=== PATIENT | female | born 1960 | race Caucasian/White ===

== ENCOUNTER 2019-12-19 13:09 | Outpatient (CLI) | payer BC, SELFPAY ==
--- NOTE | 2019-12-19 13:15 | MM_ITS ---
WS: [id number] BILATERAL DIGITAL SCREENING MAMMOGRAPHY WITH CAD CLINICAL INFORMATION: SCREENING HISTORY: Screening mammogram. No current complaints. COMPARISON: TECHNIQUE: Bilateral CC and MLO views. FINDINGS: The breasts are composed of heterogeneous fibroglandular density tissue, which can limit the detectio n of small underlying mass lesions. No suspicious mass, asymmetry, calcifications, or architectural d istortion. No evidence of malignancy. Punctate calcification left breast. Vascular calcifications. MM/[place] [id number] IMPRESSION: BI-RADS: 2-Benign FOLLOW UP: 1 Year Follow-up Recommend return to annual screening mammography.
== END 2019-12-19 13:10 | disposition home or self-care (01) ==
LOC: RADSHAW 13:13
PROVIDERS: PCP Nurse Practitioner Family; Visit Provider Nurse Practitioner Women's Health
DX: Z12.31 Encounter for screening mammogram for malignant neoplasm of breast (principal)
CPT/HCPCS: 77067

== ENCOUNTER 2020-01-31 13:48 | Emergency (ER) | payer BC, SELFPAY ==
[2020-01-31 14:00] VITALS: BP 106/72; PULSE 85; RESP 16; TEMP 36.5; O2SAT 96; BMI 26.4
--- NOTE | 2020-01-31 15:43 | XRR_ITS ---
PROCEDURE INFORMATION: Exam: XR Chest, 1 View Exam date and time: 01/31/2020 4:06 PM Age: 59 years old Clinical indication: Dyspnea; Patient HX: Abnormal ekg today; Additional info: Palpitations/dyspnea TECHNIQUE: Imaging protocol: XR of the chest Views: 1 view. COMPARISON: CT chest con [id number] 01/24/2016 3:26 PM FINDINGS: Lungs: Unremarkable. No consolidation. Pleural space: Unremarkable. No pleural effusion. No pneumothorax. Heart/Mediastinum: Unremarkable. No cardiomegaly. Bones/joints: No acute abnormality. XR/XR chest 1V portable [id number] IMPRESSION: No acute findings.
--- NOTE | 2020-01-31 15:43 | ECG_ITS ---
[facility] Test Date: 2020-01-31 Pat Name: Lorenza Armando Department: Room: Gender: Female Senior Property Manager: : 1960 Requested By: Rehan Felton Order Number: [id number] Kelly MD: Salina Cruz M.D. Measurements Intervals [place] Rate: 84 P: 59 CO: 156 QRS: 40 QRSD: 93 T: 65 QT: 362 QTc: 428 Interpretive Statements SINUS RHYTHM No previous ECG available for comparison Electronically Signed On 01-31-2020 17:00:16 CDT by Salina Cruz M.D. [email or web address].[employer] [place]/store/NU/[id number] f
--- NOTE | 2020-01-31 16:57 | ED_ITS ---
HPI - Arrhythmia/Palpitations General: Chief Complaint: Arrhythmia/Palpitations Stated Complaint: was having chest pain/ painter sent b/c ekg Time Seen by Provider: 01/31/20 16:48 Source: patient Mode of arrival: ambulatory Limitations: no limitations History of Present Illness: HPI narrative: Lorenza is a nice 59-year-old female who comes in complaining of heartburn, generalized weakness and nausea. Symptoms been present for most of the day. She was seen at [facility] they were concerned about irregular heartbeat, specifically atrial fibrillation they sent the patient here for evaluation. Patient states she feels fine now and feels silly for being here. She denies any vomiting, syncope or near syncope. Patient states ultimately at this time she feels fine. Patient denies have anything similar to this in the past. She is denying any other complaints or concerns. Associated symptoms: Deny diaphoresis, nausea, pre-syncope, syncope or vomiting Review of Systems Const: Denies: fever(s), chills, body aches, fatigue, malaise or diaphoresis Eyes: Denies: change in vision, blurry vision, photophobia, eye discomfort, eye discharge or eye redness ENMT: Denies: throat pain, odynophagia, hoarseness, swelling of lips/tongue, ear or mastoid pain, ear discharge, change in hearing or nasal discharge Card: Reports: chest pain; Denies: palpitations, irregular heart rhythm, edema, lightheadedness, syncope, pre-syncope, dyspnea on exertion or orthopnea Resp: Reports: dyspnea; Denies: productive cough, non-productive cough, wheezing, hemoptysis or chest congestion GI: Denies: abdominal pain, nausea, vomiting, hematemesis, coffee ground emesis, heartburn, diarrhea, constipation, GI cramping, hematochezia or melena : Denies: flank pain, dysuria, urinary frequency, urinary urgency or hematuria Musc: Denies: neck pain, back pain, extremity pain, extremity swelling, joint pain, joint swelling, joint redness, joint warmth or joint stiffness Skin/Breast: Denies: rash, pruritus, erythema or skin tenderness Neuro: Denies: headache(s), numbness in extremities, weakness in extremities, sensory changes, lack of coordination, difficulty walking, dizziness, vertigo, confusion, Slurred speech present or seizure-like activity Arsenio/Lymph: Denies: easy bruising, easy bleeding, petechiae, purpura or enlarged lymph nodes All/Imm: Denies: urticaria, throat swelling, tongue swelling, facial swelling or acute wheezing PFSH ED PFSH: Medical History Anxiety with depression GERD (gastroesophageal reflux disease) Hypercholesteremia Hypertension Hypothyroidism 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 Currently treating with steroid cream as needed for irritation. Post-menopausal Patient started on estradiol after surgery in 2009. 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 The dysplasia extends to multiple edges of the excised lesion. No JAYLA 2 or 3 or invasive cancer identified. Surgical History H/O abdominoplasty (~2003) Completed at the time of her ablation H/O bladder repair surgery (05/14/10) At the time of her hysterectomy H/O hernia repair (~1971) left groin H/O hysterectomy with oophorectomy (~05/14/10) TVH, BSO, anterior repair, SSIS, cystoscopy, excision of perineal skin lesion performed by Fermin Oscar H/O toe surgery (~09/2006) History of appendectomy (~1971) History of section (~02/01/88) Due to twin Status post hysteroscopic ablation of endometrium (~2003) Social History Smoking and tobacco status: never smoked Alcohol intake: never Physical Exam Const: COMMON NORMALS: no acute distress, patient oriented x3, no limitations, healthy appearing and well nourished GENERAL APPEARANCE: cooperative, well kempt and well developed HENMT: COMMON NORMALS: normocephalic, atraumatic, external ears normal, EAC's normal and Normal external nose present HEAD & SCALP: normal to inspection, normocephalic and atraumatic FACE & SINUS: normal facial exam and face sym metric NOSE: Normal external nose present and Normal nares present EXTERNAL EAR: Yes external ears normal EXTERNAL AUDITORY CANAL: EAC's normal MOUTH: Normal oral and palatal mucosa present, lip normal and tongue normal Eye: COMMON NORMALS: Equal, round and reactive pupils present and conjunctivae normal GENERAL EYE: appearance normal, both eyes and all related structures ALIGNMENT: Yes alignment normal PERIORBITAL: periorbital findings normal EYELID: eyelids normal CONJUNCTIVA: Yes conjunctivae normal SCLERA: sclerae normal PUPIL: Yes Equal, round and reactive pupils present Neck/C-Spine: COMMON NORMALS: full ROM, no lymphadenopathy, supple, no meningeal signs and no JVD GENERAL: Yes normal visual inspection and Yes trachea midline Chest: COMMONS NORMALS: normal inspection of the chest and normal palpation of entire chest wall Resp: COMMON NORMALS: normal respiratory effort, No retractions, No use of a ccessory muscles and clear to auscultation bilaterally EFFORT & INSPECTION: Yes able to speak in complete sentences and Yes symmetric chest movement AUSCULTATION: clear to auscultation bilaterally, no crackles, no rales, no rhonchi and no wheezes Cardio: COMMON NORMALS: no JVD, regular rate, regular rhythm, S1 normal heart sound present and S2 normal heart sound present RATE: regular rate RHYTHM: regular rhythm HEART SOUNDS: S1 normal heart sound present, S2 normal heart sound present, no click, no gallops, no murmurs, no rubs and abnormal split S2 GI: COMMON NORMALS: Soft to palpation and No hepatosplenomegaly present PALPATION: Yes Soft to palpation, No Tenderness to palpation present (GI), No Guarding due to palpation present (GI), No Rigid due to palpation, Yes No hepatosplenomegaly present, No Hernia present, No Palpable mass present and No Pulsatile mass present : COMMON NORMALS: Yes no CVA tenderness BLADDER/KIDNEY EXAM: Yes no CVA tenderness EXTERNAL FEMALE EXAM: No Hernia present Back/Pelvis: COMMON NORMALS: no CVA tenderness, thoracic and lumbar spine normal to inspection, no thoracic nor lumbar tenderness and thoraco-lumbar ROM normal Extremity: COMMON NORMALS: normal to inspection, full ROM, capillary refill normal, no joint enlargement, no clubbing, cyanosis or edema and no calf tenderness Neuro: COMMON NORMALS: patient oriented x3, CN's II-XII intact bilaterally, moves all extremities, no focal motor deficits and no sensory deficits noted MENINGEAL SIGNS: Yes no meningeal signs SPEECH: speech normal Psych: COMMON NORMALS: mental status grossly normal, Normal thought process present, cooperative, normal affect, speech normal and activity/motor behavior normal APPEARANCE: Yes well kempt SPEECH: Yes normal speech THOUGHT PROCESS: Normal thought process present Skin: COMMON NORMALS: no rashes or lesions noted, turgor normal, no jaundice, no petechiae and no mottling GENERAL SKIN EXAM: no rashes or lesions noted and turgor normal Course Vital Signs: Vital signs: Vital Signs Temperature 97.7 F 01/31/20 14:00 Pulse Rate 85 01/31/20 14:00 Respiratory Rate 16 01/31/20 14:00 Blood Pressure 106/72 01/31/20 14:00 Pulse Oximetry 96 01/31/20 14:00 MDM - Arrhythmia/Palpitations MDM Narrative: Medical decision making narrative: Ms. Armando is a nice 59-year-old female who comes in with palpitations and chest burning earlier this morning. The symptoms lasted for several hours. She went to [facility] and there she had a EKG which showed atrial fibrillation with RVR. This would be a new diagnosis for her. By the time the patient arrived here her symptoms had subsided and her heart rate was back to normal. Her first troponin is minimally elevated likely due to the elevated heart rate. The patient never had any chest tightness or pressure radiation of her symptoms. She had no shortness of breath, diaphoresis or nausea or vomiting. Because the patient's EKGs are slightly changed and because of the elevation troponin I have recommended she stay for further testing but she refuses. She states she feels fine, she is hungry and wants to be discharged. She is aware that any type of heart problem can be life-threatening and so she is at risk if she leaves. Patient understands though she is welcome to return. The patient was warned but she was also welcomed to return. Medical Records: Attestation: I reviewed the patient's medical records. Medical records narrative: Outside EKG from [facility] faxed to us. It reveals a heart rate of 135 with a rhythm of atrial fibrillation. No acute ST or T wave changes were noted. Lab Data: Attestation: I reviewed the patient's lab results. Labs: Lab Results 01/31/20 01/31/20 01/31/20 Range/Units 18:15 18:15 18:22 WBC 6.4 (4.0-10.0) 10^3/ uL RBC 5.38 H (4.1-5.3) 10^6/u L Hgb 15.2 (11.5-15.3) g/dL Hct 46.8 (37.0-47.0) % MCV 87.0 (81-99) fL MCH 28.3 (28.0-34.0) pg MCHC 32.5 (30.0-36.0) g/dL RDW 13.2 (12.1-15.1) % Plt Count 294 (130-400) 10^3/c mm MPV 9.6 (7.4-10.4) fL Neut % (Auto) 54.4 % Lymph % (Auto) 34.5 % [place] % (Auto) 8.9 % Eos % (Auto) 1.1 % Baso % (Auto) 0.8 % Neut # (Auto) 3.47 (1.8-7.7) 10^3/u L Lymph # (Auto) 2.2 (0.8-4.8) 10^3/u L [place] # (Auto) 0.6 (0.2-0.9) 10^3/u L Eos # (Auto) 0.1 (0.0-0.8) 10^3/u L Baso # (Auto) 0.1 (0.0-0.1) 10^3/u L Nucleated RBC % (a uto) 0 % Nucleated RBCs # 0.0 /100WBC Sodium 140 (136-145) mmol/L Potassium 3.6 (3.5-5.1) mmol/L Chloride 99 (98-107) mmol/L Carbon Dioxide 32 H (22-29) mmol/L Anion Gap 12.6 (5-19) BUN 13 (8-23) mg/dL Creatinine 1.0 H (0.5-0.9) mg/dL GFR Calculation 56.6 L (90-130) mL/min Glucose 96 (65-115) mg/dL Calculated Osmolal ity 286 (285-295) mOsm/k g Calcium 11.5 H (8.5-10.5) mg/dL Total Bilirubin 0.5 (0.15-1.2) mg/dL AST 20 (0-32) U/L ALT 23 (0-33) U/L Alkaline Phosphata se 92 (35-105) IU/L Troponin T Baselin e 15 H (0-10) ng/L Total Protein 7.4 (6.6-8.7) g/dL Albumin 4.9 (3.5-5.2) g/dL Globulin 2.5 (1.3-4.6) g/dL TSH 3.11 (0.27-4.20) uIU/ mL Free T4 1.29 (0.82-1.77) ng/d L Imaging Data^: CXR: Attestation: I personally reviewed and interpreted this imaging study as follows: My impression: No acute cardiopulmonary findings EKG Data^: EKG 1: Attestation: I personally reviewed and interpreted this EKG as follows: EKG interpretation date: 01/31/20 EKG interpretation time: 13:59 Interpretation: Normal sinus rhythm at 84 beats a minute, no acute ST-T wave changes. Other EKG comments: Chest X-Ray 01/31/20 15:43 IMPRESSION: No acute findings. EKG 2: Attestation: I personally reviewed and interpreted this EKG as follows: EKG interpretation date: 01/31/20 EKG interpretation time: 18:03 Interpretation: Normal sinus rhythm at 72 beats a minute, normal axis, no blocks, normal intervals, nonspecific ST and T wave changes. Other EKG comments: Chest X-Ray 01/31/20 15:43 IMPRESSION: No acute findings. Discharge Plan Discharge Patient Disposition: Home Clinical Impression: Atrial fibrillation Qualifiers: Atrial fibrillation type: paroxysmal Qualified Code(s): I48.0 - Paroxysmal atrial fibrillation Condition: Stable Prescriptions: New aspirin 325 mg tablet 325 mg PO DAILY Qty: 30 RF: 0 No Action levothyroxine 88 mcg capsule 88 mcg PO DAILY RF: 0 esomeprazole magnesium [Nexium] 40 mg capsule,delayed release(DR/EC) 40 mg PO DAILY RF: 0 hydrochlorothiazide 12.5 mg tablet 12.5 mg PO DAILY RF: 0 Zyrtec 10 mg capsule 10 mg PO DAILY RF: 0 buspirone 5 mg tablet 5 mg PO DAILY RF: 0 montelukast [Singulair] 10 mg tablet 10 mg PO DAILY RF: 0 lovastatin 10 mg tablet extended release 24 hr 10 mg PO ONCE RF: 0 Otezla 30 mg tablet 30 mg PO DAILY RF: 0 diltiazem HCl [Cardizem CD] 180 mg capsule,extended release 24hr 180 mg PO DAILY RF: 0 atenolol 25 mg tablet 25 mg PO DAILY RF: 0 estradiol [Vagifem] 10 mcg tablet 10 mcg VAGINAL .twice weekly Qty: 24 RF: 3 clobetasol 0.05 % ointment 1 applic TOPICAL BID RF: 0 amitriptyline 25 mg tablet 25 mg PO DAILY RF: 0 desvenlafaxine succinate 50 mg tablet extended release 24 hr 50 mg PO DAILY RF: 0 Discharge Orders: Discharge Order (Routine); Ordered 01/31/20 Ordered By: Clarissa Chandler Referrals: Uzma Aguilar FNP [Primary Care Provider] - 1-3 days Devin Galvan MD [Physician] - 1-3 days Discharge Diet: Advance as tolerated Discharge Activity: Increase activity as tolerated Patient Instructions: Atrial Fibrillation (ED) Activity Restrictions/Additional Instructions: Please return to the ER immediately for any of the signs or symptoms listed on your discharge instruction sheets, worsening/changing of your symptoms, you are not getting better as quickly as expected, or for ANY other cause or concerns. I have recommended and offered to keep you further for further testing of your heart which have declined. Coding Level of Care Code ED Telecommunications Project Manager for Bettyeg Fwd Exam Comprehensive
--- NOTE | 2020-01-31 17:43 | ECG_ITS ---
[facility] Test Date: 2020-01-31 Pat Name: Lorenza Armando Department: Room: Gender: Female Timekeeper: : 1960 Requested By: Rehan Felton Order Number: [id number] Kelly MD: Salina Cruz M.D. Measurements Intervals [place] Rate: 72 P: 44 ME: 162 QRS: 23 QRSD: 96 T: 2 QT: 393 QTc: 430 Interpretive Statements SINUS RHYTHM NONSPECIFIC T-WAVE ABNORMALITY Compared to ECG 01/31/2020 13:59:27 T-wave abnormality now present Electronically Signed On 01-31-2020 22:57:36 CDT by Salina Cruz M.D. [id number]
[2020-01-31 18:26] LABS: Basophils # 0.1 10^3/uL (0.0-0.1); Basophils % 0.8 %; Eosinophils # 0.1 10^3/uL (0.0-0.8); Eosinophils % 1.1 %; Hematocrit 46.8 % (37.0-47.0); Hemoglobin 15.2 g/dL (11.5-15.3); Lymphocytes # 2.2 10^3/uL (0.8-4.8); Lymphocytes % 34.5 %; Mean Corpuscular HGB Conc 32.5 g/dL (30.0-36.0); Mean Corpuscular Hemoglobin 28.3 pg (28.0-34.0); Mean Platelet Volume 9.6 fL (7.4-10.4); Monocytes # 0.6 10^3/uL (0.2-0.9); Monocytes % 8.9 %; Neutrophils # 3.47 10^3/uL (1.8-7.7); Neutrophils % 54.4 %; Nucleated Red Blood Cells % 0 %; Platelet Count 294 10^3/cmm (130-400); Red Blood Count 5.38 10^6/uL (4.1-5.3); Red Cell Distribution Width 13.2 % (12.1-15.1); White Blood Count 6.4 10^3/uL (4.0-10.0)
[2020-01-31 18:56] LABS: Troponin(5th) Baseline 15 ng/L (0-10)
[2020-01-31 19:04] LABS: Alanine Aminotransferase 23 U/L (0-33); Albumin Level 4.9 g/dL (3.5-5.2); Alkaline Phosphatase 92 IU/L (35-105); Anion Gap 12.6 (5-19); Aspartate Amino Transferase 20 U/L (0-32); Blood Urea Nitrogen 13 mg/dL (8-23); Calcium 11.5 mg/dL (8.5-10.5); Carbon Dioxide 32 mmol/L (22-29); Chloride 99 mmol/L (98-107); Free T4 Free Thyroxine 1.29 ng/dL (0.82-1.77); Globulin 2.5 g/dL (1.3-4.6); Glomerular Filtration Rate 56.6 mL/min (90-130); Glucose 96 mg/dL (65-115); Osmolality Calculated 286 mOsm/kg (285-295); Potassium 3.6 mmol/L (3.5-5.1); Sodium 140 mmol/L (136-145); Thyroid Stimulating Hormone 3.11 uIU/mL (0.27-4.20); Total Bilirubin 0.5 mg/dL (0.15-1.2); Total Protein 7.4 g/dL (6.6-8.7)
[2020-01-31 19:37] VITALS: BP 134/88; PULSE 71; RESP 17; O2SAT 96
== END 2020-01-31 19:39 | disposition home or self-care (01) ==
PROVIDERS: Family Medicine; Emergency Provider Emergency Medicine; PCP Nurse Practitioner Family
DX: I48.0 Paroxysmal atrial fibrillation (principal); I10 Essential (primary) hypertension
CPT/HCPCS: 12345; 36415; 71045; 80053; 84439; 84443; 84484; 85025; 93005; 99281; 99284

== ENCOUNTER 2020-05-14 13:56 | Outpatient (CLI) | payer BC, SELFPAY ==
--- NOTE | 2020-05-14 14:15 | USCV_ITS ---
Lorenza Armando Age: 59 Gender: F : 1960 Exam Date: 05/14/2020 14:21 Ordering Phys: Salina Cruz MD ([email or web address]) Technologist: Jeancarlos Florez [place] [facility] [place]: AFIB, NEW ONSET BP: 129 / 75 HR: 65 Rhythm: Sinus Technical Quality: Fair MEASUREMENTS (Male / Female) Normal Values 2D ECHO LV Diastolic Diameter PLAX 3.8 cm 4.2 - 5.9 / 3.9 - 5.3 cm LV Systolic Diameter PLAX 2.0 cm IVS Diastolic Thickness 1.5 cm 0.6 - 1.0 / 0.6 - 0.9 cm IVS Systolic Thickness 1.7 cm LVPW Diastolic Thickness 0.9 cm 0.6 - 1.0 / 0.6 - 0.9 cm LVPW Systolic Thickness 1.4 cm LVOT Diameter 2.0 cm LV Ejection Fraction 2D Teich 80.5 % LV Ejection Fraction MOD 2C 65.9 % LV Ejection Fraction 2C AL 67.8 % LA Diameter 3.0 cm LA Width 3.1 cm LA Height 3.5 cm RA Width 3.8 cm RA Height 3.7 cm Aorta at Sinotubular Diameter 2.2 cm M-MODE LV Diastolic Diameter MM 3.9 cm 4.2 - 5.9 / 3.9 - 5.3 cm LV Systolic Diameter MM 1.7 cm LV Ejection Fraction MM Teich 88.1 % IVS Diastolic Thickness MM 1.2 cm 0.6 - 1.0 / 0.6 - 0.9 cm IVS Systolic Thickness MM 1.4 cm LVPW Diastolic Thickness MM 1.0 cm 0.6 - 1.0 / 0.6 - 0.9 cm LVPW Systolic Thickness MM 1.4 cm Aortic Annulus Diameter 3.8 cm LA Ao Ratio MM 0.9 MV E Point Septal Separation 0.5 cm DOPPLER AV Peak Velocity 129.0 cm/s LVOT Peak Velocity 118.0 cm/s AV Area Cont Eq vti 2.8 cm squared AV Area Cont Eq pk 2.9 cm squared MV Area PHT 3.7 cm squared Mitral E to A Ratio 0.9 MV E' Velocity 42.5 cm/s Mitral E to MV E' Ratio 12.6 Mitral E to LV E' Lateral Ratio 11.3 Mitral E to LV E' Septal Ratio 14.2 TR Peak Velocity 201.7 cm/s TR Peak Gradient 16.3 mmHg TV Peak E Velocity 79.0 cm/s Right Atrial Pressure 3.0 mmHg Pulmonary Artery Systolic Pressu 19.3 mmHg FINDINGS Left Ventricle Normal left ventricular size, systolic function and mildly increased wall thickness, with no regional wall motion abnormalities. Left ventricular ejection fraction is estimated at 72 %. Normal diastolic function. Right Ventricle Normal right ventricular size and systolic function. Right ventricular systolic pressure 19.3 mmHg. Right Atrium Normal right atrial size. Left Atrium Normal left atrial size. Mitral Valve Structurally normal mitral valve. No mitral valve stenosis. Trace mitral valve regurgitation. Aortic Valve Structurally normal trileaflet aortic valve. No aortic valve stenosis. No aortic valve regurgitation. Tricuspid Valve Structurally normal tricuspid valve. No tricuspid valve stenosis. Trace tricuspid valve regurgitation. Pulmonic Valve Structurally normal pulmonic valve. No pulmonary valve stenosis. Trace pulmonary valve regurgitation. Pericardium No pericardial effusion. Aorta Normal size aortic root and proximal ascending aorta. Normal sized inferior vena cava. CONCLUSIONS 1. Normal left ventricular size, systolic function and mildly increased wall thickness, with no regional wall motion abnormalities. Left ventricular ejection fraction is estimated at 72 %. Normal diastolic function. 2. No significant valvular abnormality. 3. Normal pulmonary artery pressure. 4. No prior similar studies to compare. Salina Cruz MD (Electronically Signed) Final Date: 17 May 2020 11:49 S
== END 2020-05-14 13:57 | disposition home or self-care (01) ==
LOC: US 13:57
PROVIDERS: PCP Nurse Practitioner Family; Visit Provider Internal Medicine Cardiovascular Disease
DX: I48.91 Unspecified atrial fibrillation (principal)
CPT/HCPCS: 93306

== ENCOUNTER 2020-06-12 11:00 | Outpatient (CLI) | payer BC, SELFPAY | END 2020-06-12 11:01 | disposition home or self-care (01) | LOC: SLEEP 06-13 09:19 | PROVIDERS: PCP Nurse Practitioner Family; Visit Provider Internal Medicine Cardiovascular Disease | DX: I48.91 Unspecified atrial fibrillation (principal); G47.10 Hypersomnia, unspecified | CPT/HCPCS: 94762 ==

== ENCOUNTER → 2020-11-21 08:10 | Outpatient (BNVA) | payer BC, SELFPAY | PROVIDERS: PCP Nurse Practitioner Family; Visit Provider Podiatrist Foot & Ankle Surgery | DX: M79.672 Pain in left foot (principal) | CPT/HCPCS: 73630 ==

== ENCOUNTER 2021-01-18 13:45 | Outpatient (CLI) | payer BC, SELFPAY ==
--- NOTE | 2021-01-18 14:00 | MM_ITS ---
WS: [id number] BILATERAL SCREENING DIGITAL MAMMOGRAM WITH CAD HISTORY: Z12.39 - Encounter for other screening for malignant neoplasm... COMPARISON: 12/19/20192018 Bilateral CC and MLO views submitted. Computer aided detection analyzed. Breast composition: The breasts are heterogeneously dense, which may obscure small masses. No suspici ous masses, microcalcifications or architectural distortion. Benign calcifications in each breast. MM/[place] [id number] IMPRESSION: BI-RADS: 2-Benign FOLLOW UP: 1 Year Follow-up
--- NOTE | 2021-01-18 14:17 | XR_ITS ---
WS: [id number] Exam: XR DEXA axial skeleton* [id number] Date/Time of Exam: 01/18/2021 2:18 PM Reason For Exam: Z78.0 - Asymptomatic menopausal state DEXA BONE DENSITOMETRY flikdate The L1-L4 bone mineral density measures 1.127 g/cm2. This corresponds to a T score of -0.4 and Z scor e of 0.2. Left femoral neck bone mineral density measures 0.898 g/cm2. This corresponds to T score of -0.9 and Z score of -0.4. Right femoral neck bone mineral density measures 0.891 g/cm2. This corresponds to a T score of -0.9 a nd Z score of -0.4. Mean femoral neck bone mineral density measures 0.895 g/cm2. This corresponds to a T score of -0.9 an d Z score of -0.4. XR/XR DEXA axial skeleton* [id number] IMPRESSION: Bone mineral density lies in the normal range. No osteopenia is observed at th is time. Refer to detailed summary.
== END 2021-01-18 13:46 | disposition home or self-care (01) ==
LOC: RADSHAW 13:49
PROVIDERS: PCP Nurse Practitioner Family; Visit Provider Nurse Practitioner Women's Health
DX: Z12.31 Encounter for screening mammogram for malignant neoplasm of breast (principal); Z78.0 Asymptomatic menopausal state
CPT/HCPCS: 77067; 77080

== ENCOUNTER 2021-08-26 09:55 | Outpatient (CLI) | payer BC, SELFPAY ==
[2021-08-26 11:07] VITALS: BMI 27.9
--- NOTE | 2021-08-26 11:09 | ECG_ITS ---
[facility] Test Date: 2021-08-26 Pat Name: Lorenza Armando Department: Room: Gender: Female Engineer Process: Clary Crenshawn : 1960 Requested By: Uzma Aguilar Order Number: [id number] Robin MD: Salina Cruz M.D. Interpretive Statements NAME OF STUDY: LEXISCAN SESTAMIBI STRESS TEST INDICATION: Atypical Chest Pain PROCEDURE: At the baseline, the blood pressure was 141/85 mmHg, oxygen saturation 96% with a heart rate of 63 bpm. The electrocardiogram showed normal sinus rhythm, normal axis with normal ST and T's. The Lexiscan was infused over a period of 20 seconds. A total of 0.4 milligrams of Lexiscan was infused. The stress phase was continued for a total of 5 minutes. Heart rate at the end of the stress phase was 80 bpm, oxygen saturation 96% with a blood pressure of 132/85 mmHg. The EKG at the peak infusion revealed sinus rhythm with no significant ST-T wave changes. The study was terminated due to protocol completion. Sestamibi was injected 20 seconds after the Lexiscan infusion. Blood pressure at the end of the recovery phase was 137/87 mmHg, oxygen saturation 94% with a heart rate of 80 beats per minute. CONCLUSION: 1. Normal EKG response to LexiScan infusion. 2. No LexiScan induced chest pain or cardiac arrhythmia. 3. Normal blood pressure and heart rate response. 4. Sestamibi/sestamibi perfusion scan pending; see separate report. Electronically Signed On 08-28-2021 18:58:22 CDT by Salina Cruz M.D. [email or web address] [email or web address].[employer]/store/OM/[id number]
--- NOTE | 2021-08-26 11:09 | NMCV_ITS ---
NM rubina perf SPECT r/s* [id number] Lorenza Armando Age: 60 Gender: F : 1960 Exam Date: 08/26/2021 11:41 Ordering Phys: Uzma Aguilar REPORT PROGRAMMER Technologist: PERICO Moreland Exam Location: [facility] Indications: CHEST PAIN STRESS TEST Please see separate stress test report in [facility] for full findings IMAGE PROTOCOL Rest/Stress 1 Lexiscan Day Radiopharmaceutical Dose (mCi) Administration Site Administered by Rest: Tc-99m 10.6 IV PERICO Winters Sestamibi Stress:Tc-99m 32.7 IV PEIRCO Moreland Sestamibi Rest: 26-Aug-2021 60 Discovery 630 Stress: 26-Aug-2021 30 Discovery 630 0.4mg Lexiscan. Images obtained in supine and prone position. SPECT RESULTS Technical Quality: Excellent Raw Data Analysis: Normal Image Corrections: No attenuation or motion correction applied Summed Stress Score: 0 Summed Rest Score: 0 Summed Difference Score: 0 PERFUSION FINDINGS SPECT images demonstrate homogeneous tracer distribution throughout the myocardium on rest images with subtle reversibility in mid anterior wall on stress images. FUNCTIONAL RESULTS (calculated via Gated SPECT) Stress Image LV EF (%): 70 Stress EDV (mL):81 TID: 1.2 Stress ESV (mL):24 FUNCTIONAL FINDINGS: The left ventricle is normal in size. Transient Ischemia Dilatation of 1.2. The left ventricular ejection fraction is normal with a value of 70%. There is normal left ventricular wall thickening with no regional wall motion abnormality. Normal end-diastolic end-systolic volumes. IMPRESSIONS 1. Very small sized reversible perfusion abnormality of mid anterior wall on stress images. This may represent breast attenuation artifact, however small area of ischemia left anterior descending artery territory cannot be completely excluded. 2. Overall left ventricular systolic function is normal without regional wall motion abnormalities. 3. The left ventricular ejection fraction is normal with a value of 70%. 4. EKG portion of the study will be reported separately. 5. No prior similar studies to compare. Salina Cruz MD (Electronically Signed) Final Date: 28 August 2021 18:56 S
[2021-08-26 12:21] VITALS: BP 137/87; PULSE 79
[2021-08-26] MEDS: regadenoson 0.4 Mg/5 ml Syringe IVP (12:22)
== END 2021-08-26 09:56 | disposition home or self-care (01) ==
LOC: CDL 09:58
PROVIDERS: PCP Nurse Practitioner Family; Visit Provider Nurse Practitioner Family
DX: R07.89 Other chest pain (principal)
CPT/HCPCS: 78452; 93017; A9500; J2785

== ENCOUNTER → 2022-02-24 13:17 | Outpatient (BNVA) | payer BC, SELFPAY | PROVIDERS: PCP Nurse Practitioner Family; Visit Provider Podiatrist Foot & Ankle Surgery | DX: M72.2 Plantar fascial fibromatosis (principal) | CPT/HCPCS: 73630 ==

== ENCOUNTER 2022-02-27 15:06 | Outpatient (CLI) | payer BC, SELFPAY ==
--- NOTE | 2022-02-27 15:11 | MM_ITS ---
WS: [email or web address] BILATERAL 3D TOMOSYNTHESIS DIGITAL SCREENING MAMMOGRAPHY WITH CAD CLINICAL INFORMATION: Z12.39 - Encounter for other screening for malignant neop... HISTORY: Screening mammogram. No current complaints. COMPARISON: January 18, 2021 TECHNIQUE: Bilateral CC and MLO views. FINDINGS: The breasts are composed of heterogeneous fibroglandular density tissue, which can limit the detectio n of small underlying mass lesions. No suspicious mass, asymmetry, calcifications, or architectural d istortion. No evidence of malignancy. Vascular calcification. Incidental punctate calcifications. Sta ble clustered calcifications LEFT breast. MM/[place] [id number] IMPRESSION: BI-RADS: 2-Benign FOLLOW UP: 1 Year Follow-up Recommend return to annual screening mammography.
== END 2022-02-27 15:07 | disposition home or self-care (01) ==
LOC: RAD 15:07
PROVIDERS: PCP Nurse Practitioner Family; Visit Provider Nurse Practitioner Women's Health
DX: Z12.31 Encounter for screening mammogram for malignant neoplasm of breast (principal)
CPT/HCPCS: 77063; 77067

== ENCOUNTER 2022-05-09 07:23 | Outpatient (CLI) | payer BC, SELFPAY ==
--- NOTE | 2022-05-09 | CT_ITS ---
WS: [id number] CT HEAD TECHNIQUE: Noncontrast CT of the head obtained from the skullbase to the vertex. CLINICAL INFORMATION: MIGRAINES COMPARISON: 2009 DLP: 979.[address] scans at [facility] use at least one of these dose optimization techniques: automated e xposure control; mA and/or kV adjustment per patient size (includes targeted exams where dose is matc hed to clinical indication); or iterative reconstruction. FINDINGS: No evidence of intracranial hemorrhage or mass effect. Ventricular system and basal cisterns are blevins nt. Mild small vessel changes with mild parenchymal volume loss. No extra-axial fluid collections. No evidence of mass or mass effect. Intracranial vascular calcification. Paranasal sinuses and mastoid air cells are well aerated. .Normal visualized soft tissues. CT/CT head wo con* [id number] IMPRESSION: 1. No evidence of intracranial hemorrhage or mass effect. 2. Mild small vessel changes. Mild parenchymal volume loss. 3. No acute intracranial findings.
== END 2022-05-09 07:24 | disposition home or self-care (01) ==
PROVIDERS: PCP Nurse Practitioner Family; Visit Provider Nurse Practitioner Family
DX: G43.909 Migraine, unspecified, not intractable, without status migrainosus (principal)
CPT/HCPCS: 70450

== ENCOUNTER 2023-03-27 14:55 | Outpatient (CLI) | payer BC, SELFPAY ==
--- NOTE | 2023-03-27 15:01 | MM_ITS ---
WS: [email or web address] BILATERAL 3D TOMOSYNTHESIS DIGITAL SCREENING MAMMOGRAPHY WITH CAD CLINICAL INFORMATION: Z12.39 - Encounter for other screening for malignant neop... HISTORY: Screening mammogram. No current complaints. COMPARISON: 02/27/2022 TECHNIQUE: Bilateral CC and MLO views. FINDINGS: The breasts are composed of heterogeneous fibroglandular density tissue, which can limit the detectio n of small underlying mass lesions. No suspicious mass, asymmetry, calcifications, or architectural d istortion. No evidence of malignancy. Stable clustered calcifications bilaterally. Diffuse scattered incidental punctate calcifications. Vascular calcification. IMPRESSION: MM/[place] [id number] BI-RADS: 2-Benign FOLLOW UP: 1 Year Follow-up Recommend return to annual screening mammography.
--- NOTE | 2023-03-27 15:30 | XR_ITS ---
WS: [email or web address] SCREENING DEXA SCAN e-channel CLINICAL INFORMATION: Z78.0 - Asymptomatic menopausal state COMPARISON: 2020 FINDINGS: The L1-L4 bone mineral density measures 1.11. This corresponds to a T score score of -0.5 and Z score of 0.2. Left femoral neck bone mineral density measures 0.856. This corresponds to a T score of -1.2 and Z sc ore of -0.6. Right femoral neck bone mineral density measures 0.85. This corresponds to a T score of -1.2 of and Z score of -0.6. Mean femoral neck bone mineral density measures 0.85. This corresponds to a T score of -1.2 and Z sco re of -0.6. IMPRESSION: Normal bone mineralization lumbar spine. Osteopenia femoral necks. Patient's FRAX calculated 10 year probability for major osteoporotic fracture is 18.1% and osteoporot ic hip fracture is 1.2%. Bone mineral density lumbar spine decrease -1.1% Bone mineral density femoral necks decreased -4.1%
== END 2023-03-27 14:56 | disposition home or self-care (01) ==
LOC: RAD 14:55
PROVIDERS: PCP Nurse Practitioner Family; Visit Provider Nurse Practitioner Women's Health
DX: Z13.820 Encounter for screening for osteoporosis; Z78.0 Asymptomatic menopausal state; Z12.31 Encounter for screening mammogram for malignant neoplasm of breast; M85.80 Other specified disorders of bone density and structure, unspecified site
CPT/HCPCS: 77063; 77067; 77080

== ENCOUNTER 2024-04-08 08:09 | Outpatient (CLI) | payer BC, SELFPAY ==
--- NOTE | 2024-04-08 15:00 | MM_ITS ---
WS: [id number] Bilateral screening 3D tomosynthesis digital mammogram, 04/08/2024 3:00 PM Clinical Data: Z12.31 - Encounter for screening mammogram for malignant ... Comparison: 03/27/2023, 02/27/2022, 01/18/2021, 12/19/2019, 11/08/2018, 07/08/2017, 07/04/2015, 06/29/2014, , 06/02/2012, 04/23/2021, 05/14/2009, 05/12/2008, 05/05/2007. Findings: No spiculated masses or clustered calcifications are seen. There are no secondary signs of carcinoma . MM/MM [facility] tomosynthesis [id number] Impression: Negative bilateral mammogram unchanged. Recommend annual screening mammograms. BIRADS: 1 - Negative FOLLOW UP: 1 Year Follow-up DENSITY: The breasts are heterogeneously dense, which may obscure small masses. The CAD waterway traffic checker was used
== END 2024-04-08 08:10 | disposition home or self-care (01) ==
LOC: RAD 08:10
PROVIDERS: PCP Nurse Practitioner Family; Visit Provider Nurse Practitioner Women's Health
DX: Z12.31 Encounter for screening mammogram for malignant neoplasm of breast (principal)
CPT/HCPCS: 77063; 77067

== ENCOUNTER 2025-04-10 09:00 | Outpatient (CLI) | payer MEDICARE, BC, SELFPAY ==
--- NOTE | 2025-04-10 09:03 | MM_ITS ---
WS: [email or web address] BILATERAL SCREENING DIGITAL TOMOSYNTHESIS MAMMOGRAM WITH CAD HISTORY: SCREENING COMPARISON: 04/08/2024, 03/27/2023, 02/27/2022 Bilateral CC and MLO views with tomosynthesis and synthetic mammography submitted. Computer aided detection analyzed. Breast composition: The breasts are heterogeneously dense, which may obscure small masses. No suspicious masses, microcalcifications or architectural distortion. Benign fibroglandular asymmetry scattered throughout each breast. Scattered calcifications and arterial calcifications. MM/MM scr tomosynthesis [id number] IMPRESSION: BI-RADS: 2 - Benign FOLLOW UP: 1 Year Follow-up
== END 2025-04-10 09:01 | disposition home or self-care (01) ==
PROVIDERS: PCP Nurse Practitioner Family; Visit Provider Nurse Practitioner Family
DX: Z12.31 Encounter for screening mammogram for malignant neoplasm of breast (principal); R92.333 Mammographic heterogeneous density, bilateral breasts; N64.89 Other specified disorders of breast; R92.1 Mammographic calcification found on diagnostic imaging of breast
CPT/HCPCS: 77063; 77067